=== PATIENT | male | born 1950 | race Caucasian/White ===

== ENCOUNTER → 2017-12-14 | Outpatient (CLI) | payer OTHER ==
--- NOTE | ~2017-12-14 | EXE ---
[facility] [employer] [employer] [place] [address] STRESS ECHOCARDIOGRAM Name: SEVEN EDGAR Room #: REG Stephen#: [id number] Admission: 12/14/17 Attend Phys: Cachorro Longo Discharge: Date of : 54 Date of Service: 12/14/17 1115 Report #: [id number] THIS REPORT FOR: //name// APPROVED REPORT Study performed: 12/14/2017 09:19:52 Exam: Stress Echocardiogram Indication: Atrial Fibrillation Patient Location: Out-Patient Stress Nurse: Delores Bo RN Room #: Echo lab 2 Ht: 6 ft 8 in HR: 71 bpm BP: 132/76 mmHg Rhythm: NSR Medical History Medical History: Atrial Fibrillation Exercise History: Physically active Procedure The patient underwent an Exercise Stress Test using the Forest Protocol. Blood pressure, heart rate, and EKG were monitored. An Echocardiogram was performed by solar field service technician in four stages in quad fashion. At peak stress, four selected images were obtained and placed side by side with resting images for comparison. Stress Test Details Stress Test: Exercise stress testing was performed using a Forest protocol. HR Resting HR: 714 bpm Max Heart Rate (APMHR): 155 bpm Max HR Achieved: 222 bpm Target HR (85% APMHR): 131 bpm % of APMHR: 143 Recovery HR: 89 bpm HR response to stress: Accelerated HR response to stress BP Resting BP: 132/76 mmHg Max BP: 210/84 mmHg Recovery BP: 140/[address] [facility] [address] [place] [address] STRESS ECHOCARDIOGRAM Name: SEVEN EDGAR Room #: REG [facility]#: [id number] Admission: 12/14/17 Attend Phys: Cachorro Longo Discharge: Date of : 54 Date of Service: 12/14/17 1115 Report #: [id number] Resting ECG: Sinus Rhythm Stress ECG: SVT ST Change: Upsloping ST depression Clinical Reason for Termination: SVT Stress Symptoms: Light headed Exercise duration: 9 min 31 sec Highest Stage Achieved: Stage 4: 4.2 mph at 16% grade. Exercise capacity: 11.7 METs Overall Exercise Capacity for Age: Good Pre-Stress Echo The resting Echocardiogram showed normal left ventricular contractility with an estimated Ejection Fraction of about >55%. Normal wall motion in all segments on baseline images. Post-Stress Echo The stress Echocardiogram showed normal left ventricular contractility with an estimated Ejection Fraction of about >70%. Normal augmentation of wall motion in all segments on post stress images. Clinical Normal augmentation of myocardial wall segments using a 17 segment model. Conclusion Clinical Response: Non-ischemic Exercise Capacity: Above average Stress ECG Response: Ischemic Stress Echo Images: Non-ischemic 1. SVT developed during peak exercise. 2. Positive ECG changes at maximal heart rate, but no evidence for wall motion abnormalities. Other Information Study Quality: Good <Conclusion> 1. SVT developed during peak exercise. [facility] [place] [address] STRESS ECHOCARDIOGRAM Name: SEVEN EDGAR Room #: REG [facility].#: [id number] Admission: 12/14/17 Attend Phys: Cachorro Longo Discharge: Date of : 54 Date of Service: 12/14/17 1115 Report #: [id number] 2. Positive ECG changes at maximal heart rate, but no evidence for wall motion abnormalities. <ELECTRONICALLY SIGNED> By: Miguel Buenrostro MD 12/14/17 1115 14 Miguel Buenrostro MD /INF
== END ==
LOC: CV 08:00
DX: I48.0 Paroxysmal atrial fibrillation (principal)

== ENCOUNTER → 2019-12-05 | Outpatient (CLI) | payer OTHER | LOC: SJCVC 13:07 | PROVIDERS: ATTEND Internal Medicine Cardiovascular Disease | DX: I44.0 Atrioventricular block, first degree (principal); I45.19 Other right bundle-branch block; I47.1 Supraventricular tachycardia; I48.0 Paroxysmal atrial fibrillation ==

== ENCOUNTER → 2020-12-10 | Outpatient (CLI) | payer OTHER | LOC: SJCVC 12:55 | PROVIDERS: ATTEND Internal Medicine Cardiovascular Disease | DX: I45.10 Unspecified right bundle-branch block (principal); I47.1 Supraventricular tachycardia; Z79.899 Other long term (current) drug therapy; Z72.89 Other problems related to lifestyle ==

== ENCOUNTER → 2021-03-05 | Outpatient (CLI) | payer OTHER | LOC: CAT 08:35 | PROVIDERS: ATTEND Internal Medicine Cardiovascular Disease | DX: Z13.6 Encounter for screening for cardiovascular disorders (principal); I25.10 Atherosclerotic heart disease of native coronary artery without angina pectoris; E78.00 Pure hypercholesterolemia, unspecified ==